=== PATIENT | female | born 2000 | race Asian ===

== ENCOUNTER 2024-11-17 13:55 | Emergency (ER) | payer SELFPAY ==
[~2024-11-17] VITALS: Ht 157.5 cm; Wt 72.0 kg
[2024-11-17 14:16] VITALS: O2SAT 100
[2024-11-17] MEDS: ACETAMINOPHEN 325MG TABLET PO ONE (15:45)
[2024-11-17] MEDS: KETOROLAC 30MG/ML VIAL IM ONE (15:45)
[2024-11-17] MEDS ORDERED: HYDR-4001 MT (16:13)
[2024-11-17 17:07] VITALS: BP 112/60; PULSE 76; RESP 18; TEMP 36.9; O2SAT 98
== END 2024-11-17 17:33 | disposition home or self-care (01) ==
LOC: ER 13:55
DX: S82.892A Other fracture of left lower leg, initial encounter for closed fracture (principal); W01.0XXA Fall on same level from slipping, tripping and stumbling without subsequent striking against object, initial encounter; Y93.89 Activity, other specified; Y92.89 Other specified places as the place of occurrence of the external cause; Y99.8 Other external cause status
CPT/HCPCS: 99283; 29515; 81025; 73610; 96372; J1885

== ENCOUNTER 2024-11-27 13:15 | Emergency (ER) | payer SELFPAY ==
[~2024-11-27] VITALS: Ht 162.6 cm; Wt 75.0 kg
[~2024-11-27 13:15] MED LIST: HYDR-4001 MT
[2024-11-27 13:33] VITALS: BP 106/71; PULSE 89; RESP 18; TEMP 36.9; O2SAT 97; O2SAT 99
== END 2024-11-27 16:44 | disposition home or self-care (01) ==
LOC: ER 13:15
DX: Z00.00 Encounter for general adult medical examination without abnormal findings (principal)
CPT/HCPCS: 99281

== ENCOUNTER 2024-12-02 16:02 | Emergency (ER) | payer SELFPAY ==
[~2024-12-02] VITALS: Ht 157.5 cm; Wt 75.0 kg
[2024-12-02 16:17] VITALS: O2SAT 99
[2024-12-02 16:21] VITALS: BP 123/85; PULSE 84; RESP 16; TEMP 36.9; O2SAT 99
[2024-12-02] MEDS: ACETAMINOPHEN 500MG TABLET PO ONE (19:20)
== END 2024-12-02 19:51 | disposition home or self-care (01) ==
LOC: ER 16:02
DX: M25.572 Pain in left ankle and joints of left foot (principal)
CPT/HCPCS: 73610; 99283